=== PATIENT | male | born 1950 | race African-American/Black ===

== ENCOUNTER 2020-11-11 11:03 | Inpatient (IN) | payer MEDICARE ==
[~2020-11-11] VITALS: Ht 188 cm; Wt 121.6 kg
[2020-11-11] MEDS ORDERED: ALBUTEROL (0.083%) 2.5MG/3ML NEB HHN STA (11:36)
[2020-11-11] MEDS ORDERED: METHYLPREDNISOLONE SOD SUCC 125 MG/2 ML VIAL IV STA (11:36)
[2020-11-11 11:51] LABS: BASOPHILS % 0.4 % (0.0-2.0); EOSINOPHILS % 0.4 % (0.0-5.0); HEMATOCRIT. 39.8 % (42.0-52.0); HEMOGLOBIN. 13.2 g/dL (14.0-18.0); MEAN CORPUSCULAR HEMOGLOBIN 26.3 pg (28.0-32.0); MEAN CORPUSCULAR VOLUME 79.6 fL (80.0-94.0); MEAN PLATELET VOLUME 7.1 fl (7.4-10.4); MONOCYTES % 8.4 % (2.0-8.0); NEUTROPHILS % 80.8 % (40.0-76.0); PLATELET 264 x1000/uL (130-400); RED CELL DISTRIBUTION WIDTH 18.5 % (11.6-14.6)
[2020-11-11 11:57] LABS: CHLORIDE 108 mEq/L (98-107)
[2020-11-11] MEDS ORDERED: ASPIRIN 81MG TABLET PO ONE (12:30)
[2020-11-11] MEDS ORDERED: FUROSEMIDE 40MG/4ML VIAL IV ONE (12:30)
[2020-11-11] MEDS ORDERED: ZOLPIDEM TARTRATE 5MG TABLET PO PRN (15:00)
[2020-11-11] MEDS ORDERED: CLONIDINE 0.1MG TABLET PO PRN (15:00)
[2020-11-11] MEDS ORDERED: GUAIFENESIN 200MG/10ML SUGAR FREE UDC PO PRN (15:00)
[2020-11-11] MEDS ORDERED: NITROGLYCERIN 0.4MG TABLET SL SL PRN (15:00)
[2020-11-11] MEDS ORDERED: MAGNESIUM/ALUMINUM HYDROXIDE/SIMETHICONE 30ML UDC PO PRN (15:00)
[2020-11-11] MEDS ORDERED: TRAMADOL 50MG TABLET PO PRN (15:00)
[2020-11-11] MEDS ORDERED: ACETAMINOPHEN 325MG TABLET PO PRN ×2 (15:00)
[2020-11-11 15:23] LABS: TOTAL IRON BINDING CAPACITY 388 ug/dL (250-450)
[2020-11-11 15:38] LABS: FERRITIN 35 ng/mL (22-322)
[2020-11-11 15:44] LABS: BG CARBOXYHEMOGLOBIN 2.8 % (0.5-1.5); BG DEOXYHEMOGLOBIN 15.6 % (0.0-5.0); BG FRACTION INSPIRED OXYGEN 40; BG HCO3 ACT 25.2 mmol/L (22.0-26.0); BG METHEMOGLOBIN 0.3 % (0.0-1.5); BG OXYGEN SATURATION 83.9 % (92.0-98.5); BG OXYHEMOGLOBIN 81.3 % (94.0-97.0); BG PCO2 52.9 mmHg (35.0-45.0); BG PH 7.296 (7.350-7.450); BG SAMPLE SITE LEFT RADIAL; BG TOTAL HEMOGLOBIN 14.6 g/dL (12.0-18.0); BG VENT MODE NASAL CANNULA
[2020-11-11 15:49] LABS: VITAMIN B12 SERUM 983 pg/mL (211-911)
[2020-11-11 15:55] LABS: FOLIC ACID (FOLATE) SERUM > 20.00 ng/mL (>5.38)
[2020-11-11] MEDS ORDERED: ENOXAPARIN 150MG/ML SYR SUBCUT ONE (16:30)
[2020-11-11 16:59] LABS: *BARBITURATES SCREEN URINE NEGATIVE (NEGATIVE); OPIATES URINE SCREEN NEGATIVE (NEGATIVE); PHENCYCLIDINE URINE SCREEN NEGATIVE (NEGATIVE)
[2020-11-11] MEDS: ENOXAPARIN 40MG/0.4ML SYR SUBCUT SCH (17:00)
[2020-11-11] MEDS: FAMOTIDINE 20MG TABLET PO SCH (17:00)
[2020-11-11] MEDS: ZINC SULFATE 220 MG ( 50 ) CAPSULE PO SCH (17:00)
[2020-11-11 17:01] LABS: *AMPHETAMINES SCREEN URINE NEGATIVE (NEGATIVE); *BENZODIAZEPINES SCREEN URINE NEGATIVE (NEGATIVE); *COCAINE SCREEN URINE NEGATIVE (NEGATIVE); CANNABINOID URINE SCREEN NEGATIVE (NEGATIVE); METHADONE URINE SCREEN NEGATIVE (NEGATIVE)
[2020-11-11] MEDS: FUROSEMIDE 40MG/4ML VIAL IVP SCH (18:52)
[2020-11-11] MEDS ORDERED: FAMOTIDINE 20MG TABLET PO SCH (21:00)
[2020-11-11] MEDS: ASCORBIC ACID 500 MG TABLET PO SCH (21:00)
[2020-11-11] MEDS ORDERED: DEXTROSE 50% WATER 50ML SYRINGE IV PRN (22:30)
[2020-11-12] VITALS (7 sets, daily range): BP systolic 118–143; BP diastolic 66–89
[2020-11-12 01:45] LABS: CREATINE KINASE 151 IU/L (39-308); CREATINE KINASE MB FRACTION 1.5 ng/mL (0.5-3.6)
[2020-11-12] MEDS: FUROSEMIDE 40MG/4ML VIAL IVP SCH (06:23)
[2020-11-12] MEDS: INSULIN LISPRO 100 UNITS/ML SUBCUT SCH ×4 (06:28→21:00)
[2020-11-12] MEDS: BLOOD SUGAR DIAGNOSTIC STRIP TEST SCH ×4 (06:28→21:00)
[2020-11-12] MEDS: FAMOTIDINE 20MG TABLET PO SCH (08:44)
[2020-11-12] MEDS: ASCORBIC ACID 500 MG TABLET PO SCH ×2 (08:44→22:16)
[2020-11-12] MEDS: ZINC SULFATE 220 MG ( 50 ) CAPSULE PO SCH (08:44)
[2020-11-12] MEDS: CHOLECALCIFEROL (D3) 1000 UNIT TABLET PO SCH (08:44)
[2020-11-12] MEDS: ENOXAPARIN 40MG/0.4ML SYR SUBCUT SCH (08:47)
[2020-11-12] MEDS ORDERED: ASPIRIN 325MG EC TABLET PO SCH (09:00)
[2020-11-12] MEDS ORDERED: ASPIRIN 81MG EC TABLET PO SCH (10:00)
[2020-11-12 12:33] LABS: BASOPHILS % 0.1 % (0.0-2.0); HEMATOCRIT. 41.3 % (42.0-52.0); HEMOGLOBIN. 12.9 g/dL (14.0-18.0); LYMPHOCYTES % 9.3 % (20.0-50.0); MEAN PLATELET VOLUME 7.1 fl (7.4-10.4); MONOCYTES % 13.8 % (2.0-8.0); NEUTROPHILS % 76.8 % (40.0-76.0); PLATELET 256 x1000/uL (130-400); RED BLOOD CELL COUNT 4.97 mill/uL (4.7-6.1); RED CELL DISTRIBUTION WIDTH 18.5 % (11.6-14.6)
[2020-11-12 12:35] LABS: CHLORIDE 108 mEq/L (98-107)
[2020-11-12 12:44] LABS: CREATINE KINASE 67 IU/L (39-308); PHOSPHORUS 6.3 mg/dL (2.5-4.9)
[2020-11-12 12:45] LABS: LDL CHOLESTEROL 59 mg/dL (5-100)
[2020-11-12 12:47] LABS: CREATINE KINASE MB FRACTION 1.9 ng/mL (0.5-3.6); HDL CHOLESTEROL 47 mg/dL (40-59)
[2020-11-12] MEDS ORDERED: METOPROLOL TARTRATE 25MG TABLET PO SCH (13:30)
[2020-11-12] MEDS ORDERED: IOHEXOL-350 100 ML BOTTLE ONE ×2 (16:56→22:17)
[2020-11-12] MEDS ORDERED: SODIUM POLYSTYRENE SULFONATE 15 G/60 ML BOT PO NR (17:00)
[2020-11-12] MEDS: HYDRALAZINE HCL 25MG TABLET PO SCH ×2 (17:47→22:17)
[2020-11-12] MEDS: METOPROLOL TARTRATE 50MG TABLET PO SCH ×2 (17:47→22:16)
[2020-11-12] MEDS: IPRATROPIUM/ALBUTEROL 0.5-3(2.5)MG/3ML NEB HHN SCH (21:34)
[2020-11-13] VITALS: BP 123/73
[2020-11-13] MEDS: IPRATROPIUM/ALBUTEROL 0.5-3(2.5)MG/3ML NEB HHN SCH ×4 (01:56→20:48)
[2020-11-13 04:00] VITALS: BP 129/76
[2020-11-13] MEDS: INSULIN LISPRO 100 UNITS/ML SUBCUT SCH ×4 (06:59→21:00)
[2020-11-13] MEDS: HYDRALAZINE HCL 25MG TABLET PO SCH (06:59)
[2020-11-13] MEDS: BLOOD SUGAR DIAGNOSTIC STRIP TEST SCH ×4 (06:59→21:00)
[2020-11-13 07:16] LABS: BASOPHILS % 0.2 % (0.0-2.0); HEMATOCRIT. 44.2 % (42.0-52.0); HEMOGLOBIN. 13.9 g/dL (14.0-18.0); LYMPHOCYTES % 8.9 % (20.0-50.0); MEAN CORPUSCULAR HEMOGLOBIN 26.1 pg (28.0-32.0); MEAN CORPUSCULAR VOLUME 83.1 fL (80.0-94.0); MEAN PLATELET VOLUME 7.2 fl (7.4-10.4); MONOCYTES % 10.8 % (2.0-8.0); NEUTROPHILS % 80.1 % (40.0-76.0); PLATELET 233 x1000/uL (130-400); RED BLOOD CELL COUNT 5.31 mill/uL (4.7-6.1); RED CELL DISTRIBUTION WIDTH 18.8 % (11.6-14.6)
[2020-11-13 07:55] LABS: PHOSPHORUS 5.1 mg/dL (2.5-4.9)
[2020-11-13] MEDS: ASCORBIC ACID 500 MG TABLET PO SCH ×2 (08:41→23:06)
[2020-11-13] MEDS: FAMOTIDINE 20MG TABLET PO SCH (08:41)
[2020-11-13] MEDS: CHOLECALCIFEROL (D3) 1000 UNIT TABLET PO SCH (08:42)
[2020-11-13] MEDS: ZINC SULFATE 220 MG ( 50 ) CAPSULE PO SCH (08:42)
[2020-11-13] MEDS: METOPROLOL TARTRATE 50MG TABLET PO SCH ×2 (08:43→23:07)
[2020-11-13] MEDS: BUDESONIDE 0.5MG/2ML NEB HHN SCH ×3 (09:13→20:49)
[2020-11-13] MEDS ORDERED: SODIUM POLYSTYRENE SULFONATE 15 G/60 ML BOT PO NR (10:30)
[2020-11-13] MEDS: FUROSEMIDE 40MG/4ML VIAL IVP SCH (11:58)
[2020-11-13] MEDS: AMLODIPINE 5MG TABLET PO SCH (11:58)
[2020-11-13 12:00] VITALS: BP 128/69
[2020-11-13] MEDS: HYDRALAZINE HCL 50MG TABLET PO SCH ×2 (15:19→23:05)
[2020-11-13 16:00] VITALS: BP 123/69
[2020-11-13 18:11] LABS: BG BASE EXCESS 0.7 mmol/L (-2.0-2.0); BG CARBOXYHEMOGLOBIN 1.3 % (0.5-1.5); BG DEOXYHEMOGLOBIN 6.6 % (0.0-5.0); BG FRACTION INSPIRED OXYGEN 100; BG HCO3 ACT 29.8 mmol/L (22.0-26.0); BG METHEMOGLOBIN 0.1 % (0.0-1.5); BG OXYGEN SATURATION 93.3 % (92.0-98.5); BG PCO2 69.3 mmHg (35.0-45.0); BG PH 7.251 (7.350-7.450); BG PO2 71.4 mmHg (75.0-100.0); BG SAMPLE SITE RIGHT RADIAL; BG TOTAL HEMOGLOBIN 14.1 g/dL (12.0-18.0); BG VENT MODE MASK - SIMPLE
[2020-11-13 20:00] VITALS: BP 128/70
[2020-11-14] VITALS (83 sets, daily range): BP systolic 66–179; BP diastolic 38–109
[2020-11-14 01:40] LABS: BG BASE EXCESS -0.2 mmol/L (-2.0-2.0); BG CARBOXYHEMOGLOBIN 1.3 % (0.5-1.5); BG DEOXYHEMOGLOBIN 3.2 % (0.0-5.0); BG FRACTION INSPIRED OXYGEN 100; BG HCO3 ACT 30.5 mmol/L (22.0-26.0); BG METHEMOGLOBIN 0.2 % (0.0-1.5); BG OXYGEN SATURATION 96.8 % (92.0-98.5); BG OXYHEMOGLOBIN 95.3 % (94.0-97.0); BG PCO2 82.4 mmHg (35.0-45.0); BG PH 7.186 (7.350-7.450); BG PO2 99.6 mmHg (75.0-100.0); BG SAMPLE SITE RIGHT RADIAL; BG TOTAL HEMOGLOBIN 14.1 g/dL (12.0-18.0); BG VENT MODE MASK - NRB
[2020-11-14] MEDS: IPRATROPIUM/ALBUTEROL 0.5-3(2.5)MG/3ML NEB HHN SCH (01:47)
[2020-11-14 04:59] LABS: BG BASE EXCESS -0.6 mmol/L (-2.0-2.0); BG CARBOXYHEMOGLOBIN 1.3 % (0.5-1.5); BG DEOXYHEMOGLOBIN 8.6 % (0.0-5.0); BG FRACTION INSPIRED OXYGEN 100; BG HCO3 ACT 30.8 mmol/L (22.0-26.0); BG METHEMOGLOBIN 0.3 % (0.0-1.5); BG OXYGEN SATURATION 91.3 % (92.0-98.5); BG OXYHEMOGLOBIN 89.8 % (94.0-97.0); BG PCO2 88.4 mmHg (35.0-45.0); BG PO2 68.3 mmHg (75.0-100.0); BG SAMPLE SITE LEFT RADIAL; BG TOTAL HEMOGLOBIN 14.4 g/dL (12.0-18.0); BG VENT MODE MASK - NRB
[2020-11-14] MEDS: PROPOFOL 10MG/ML 100ML 100 ML IV PRN ×7 (05:21→22:07)
[2020-11-14] MEDS: HYDRALAZINE HCL 50MG TABLET PO SCH ×3 (06:00→21:18)
[2020-11-14] MEDS: NOREPINEPHRINE 32 MG in DEXT 5% WATER 218 ML IV PRN ×2 (06:31→21:43)
[2020-11-14] MEDS: INSULIN LISPRO 100 UNITS/ML SUBCUT SCH ×4 (07:00→21:00)
[2020-11-14] MEDS: FENTANYL CITRATE/PF 2,500 MCG in SODIUM CHLORIDE 0.9% 200 ML IV PRN (07:12)
[2020-11-14] MEDS: BLOOD SUGAR DIAGNOSTIC STRIP TEST SCH ×4 (07:28→21:19)
[2020-11-14] MEDS: METOPROLOL TARTRATE 50MG TABLET PO SCH ×2 (08:00→21:00)
[2020-11-14] MEDS: AMLODIPINE 5MG TABLET PO SCH (08:00)
[2020-11-14] MEDS: FAMOTIDINE 20MG TABLET PO SCH (08:06)
[2020-11-14] MEDS: ASCORBIC ACID 500 MG TABLET PO SCH ×2 (08:06→21:42)
[2020-11-14] MEDS: ZINC SULFATE 220 MG ( 50 ) CAPSULE PO SCH (08:06)
[2020-11-14] MEDS: CHOLECALCIFEROL (D3) 1000 UNIT TABLET PO SCH (08:06)
[2020-11-14] MEDS: FUROSEMIDE 40MG/4ML VIAL IVP SCH ×2 (08:06→17:45)
[2020-11-14] MEDS ORDERED: SUCCINYLCHOLINE CHLORIDE 200MG/10ML IV ONE (08:31)
[2020-11-14] MEDS ORDERED: ETOMIDATE 2MG/ML 10ML VIAL IV ONE (08:31)
[2020-11-14] MEDS: ALBUTEROL (0.083%) 2.5MG/3ML NEB HHN SCH ×3 (08:35→20:51)
[2020-11-14] MEDS: BUDESONIDE 0.5MG/2ML NEB HHN SCH ×2 (08:35→20:51)
[2020-11-14 09:50] LABS: BG CARBOXYHEMOGLOBIN 1.4 % (0.5-1.5); BG DEOXYHEMOGLOBIN 1.6 % (0.0-5.0); BG FRACTION INSPIRED OXYGEN 100; BG HCO3 ACT 28.8 mmol/L (22.0-26.0); BG METHEMOGLOBIN 0.3 % (0.0-1.5); BG OXYGEN SATURATION 98.4 % (92.0-98.5); BG OXYHEMOGLOBIN 96.7 % (94.0-97.0); BG PCO2 55.4 mmHg (35.0-45.0); BG PH 7.334 (7.350-7.450); BG PO2 115.4 mmHg (75.0-100.0); BG SAMPLE SITE RIGHT RADIAL; BG TOTAL HEMOGLOBIN 11.8 g/dL (12.0-18.0); BG VENT MODE VENT - AC
[2020-11-14 09:58] LABS: HEMATOCRIT. 40.1 % (42.0-52.0); HEMOGLOBIN. 12.3 g/dL (14.0-18.0); MEAN CORPUSCULAR VOLUME 81.2 fL (80.0-94.0); MEAN PLATELET VOLUME 7.4 fl (7.4-10.4); PLATELET 193 x1000/uL (130-400); RED BLOOD CELL COUNT 4.94 mill/uL (4.7-6.1); RED CELL DISTRIBUTION WIDTH 19.2 % (11.6-14.6)
[2020-11-14 13:47] LABS: PLATELET ESTIMATE NORMAL
[2020-11-14 16:19] LABS: CLARITY URINE CLEAR (CLEAR); COLOR URINE YELLOW (YELLOW); KETONES URINE NEGATIVE (NEGATIVE); LEUKOCYTE ESTERASE URINE 3+ (NEGATIVE); NITRITE URINE NEGATIVE (NEGATIVE); OCCULT BLOOD URINE 2+ (NEGATIVE); PH URINE 5.5 (4.5-8.0); PROTEIN URINE NEGATIVE (NEGATIVE); SPECIFIC GRAVITY URINE 1.012 (1.005-1.030)
[2020-11-15] VITALS (97 sets, daily range): BP systolic 76–158; BP diastolic 47–97
[2020-11-15] MEDS: ALBUTEROL (0.083%) 2.5MG/3ML NEB HHN SCH ×3 (00:26→21:39)
[2020-11-15] MEDS: PROPOFOL 10MG/ML 100ML 100 ML IV PRN ×2 (02:23→17:40)
[2020-11-15] MEDS: HYDRALAZINE HCL 50MG TABLET PO SCH ×3 (05:04→22:00)
[2020-11-15] MEDS: BLOOD SUGAR DIAGNOSTIC STRIP TEST SCH ×4 (05:35→21:50)
[2020-11-15 05:42] LABS: BASOPHILS % 0.3 % (0.0-2.0); HEMATOCRIT. 41.5 % (42.0-52.0); HEMOGLOBIN. 13.2 g/dL (14.0-18.0); LYMPHOCYTES % 9.5 % (20.0-50.0); MEAN CORPUSCULAR HEMOGLOBIN 25.1 pg (28.0-32.0); MEAN CORPUSCULAR VOLUME 78.8 fL (80.0-94.0); MEAN PLATELET VOLUME 7.3 fl (7.4-10.4); MONOCYTES % 6.7 % (2.0-8.0); NEUTROPHILS % 82.5 % (40.0-76.0); PLATELET 201 x1000/uL (130-400); RED BLOOD CELL COUNT 5.26 mill/uL (4.7-6.1); RED CELL DISTRIBUTION WIDTH 18.4 % (11.6-14.6)
[2020-11-15] MEDS: FUROSEMIDE 40MG/4ML VIAL IVP SCH ×2 (05:58→17:18)
[2020-11-15] MEDS: FENTANYL CITRATE/PF 2,500 MCG in SODIUM CHLORIDE 0.9% 200 ML IV PRN ×2 (05:59→18:51)
[2020-11-15] MEDS: INSULIN LISPRO 100 UNITS/ML SUBCUT SCH ×4 (06:28→21:00)
[2020-11-15] MEDS: BUDESONIDE 0.5MG/2ML NEB HHN SCH ×2 (07:30→21:39)
[2020-11-15] MEDS: AMLODIPINE 5MG TABLET PO SCH (08:23)
[2020-11-15] MEDS: CHOLECALCIFEROL (D3) 1000 UNIT TABLET PO SCH (08:23)
[2020-11-15] MEDS: ASCORBIC ACID 500 MG TABLET PO SCH ×2 (08:23→21:51)
[2020-11-15] MEDS: DOCUSATE SODIUM 100MG CAPSULE PO PRN (08:23)
[2020-11-15] MEDS: ZINC SULFATE 220 MG ( 50 ) CAPSULE PO SCH (08:23)
[2020-11-15] MEDS: FAMOTIDINE 20MG TABLET PO SCH (08:23)
[2020-11-15] MEDS: METOPROLOL TARTRATE 50MG TABLET PO SCH ×2 (08:24→21:00)
[2020-11-15 09:43] LABS: BG BASE EXCESS 4.8 mmol/L (-2.0-2.0); BG CARBOXYHEMOGLOBIN 0.9 % (0.5-1.5); BG FRACTION INSPIRED OXYGEN 70; BG HCO3 ACT 27.8 mmol/L (22.0-26.0); BG METHEMOGLOBIN 0.1 % (0.0-1.5); BG OXYGEN SATURATION 93.9 % (92.0-98.5); BG PCO2 35.6 mmHg (35.0-45.0); BG PO2 66.1 mmHg (75.0-100.0); BG SAMPLE SITE RIGHT RADIAL; BG TOTAL HEMOGLOBIN 14.1 g/dL (12.0-18.0); BG TOTAL RESPIRATORY RATE 24 b/min; BG VENT MODE VENT - AC
[2020-11-15] MEDS: PREDNISONE 20MG TABLET PO SCH (17:18)
[2020-11-15] MEDS ORDERED: DIGOXIN 500MCG/2ML AMP IV NR (19:00)
[2020-11-15] MEDS ORDERED: PHENYLEPHRINE 100 MG in DEXT 5% WATER 240 ML IV PRN (19:00)
[2020-11-16] VITALS (97 sets, daily range): BP systolic 70–142; BP diastolic 46–88
[2020-11-16] MEDS: ALBUTEROL (0.083%) 2.5MG/3ML NEB HHN SCH ×6 (01:11→21:00)
[2020-11-16] MEDS: PROPOFOL 10MG/ML 100ML 100 ML IV PRN (01:33)
[2020-11-16] MEDS: FENTANYL CITRATE/PF 2,500 MCG in SODIUM CHLORIDE 0.9% 200 ML IV PRN ×3 (05:08→20:35)
[2020-11-16 06:00] LABS: HEMATOCRIT. 39.2 % (42.0-52.0); HEMOGLOBIN. 12.6 g/dL (14.0-18.0); MEAN CORPUSCULAR HEMOGLOBIN 25.2 pg (28.0-32.0); MEAN CORPUSCULAR VOLUME 78.3 fL (80.0-94.0); MEAN PLATELET VOLUME 7.4 fl (7.4-10.4); PLATELET 168 x1000/uL (130-400); RED CELL DISTRIBUTION WIDTH 18.8 % (11.6-14.6)
[2020-11-16] MEDS: FUROSEMIDE 40MG/4ML VIAL IVP SCH ×2 (06:00→17:35)
[2020-11-16] MEDS: HYDRALAZINE HCL 50MG TABLET PO SCH ×3 (06:00→22:00)
[2020-11-16] MEDS: INSULIN LISPRO 100 UNITS/ML SUBCUT SCH ×4 (07:00→21:00)
[2020-11-16] MEDS: BLOOD SUGAR DIAGNOSTIC STRIP TEST SCH ×4 (07:29→21:13)
[2020-11-16] MEDS: METOPROLOL TARTRATE 50MG TABLET PO SCH ×2 (08:12→20:36)
[2020-11-16] MEDS: AMLODIPINE 5MG TABLET PO SCH (08:13)
[2020-11-16 08:20] LABS: BG DEOXYHEMOGLOBIN 11.1 % (0.0-5.0); BG HCO3 ACT 32.3 mmol/L (22.0-26.0); BG METHEMOGLOBIN 0.1 % (0.0-1.5); BG OXYGEN SATURATION 88.8 % (92.0-98.5); BG OXYHEMOGLOBIN 87.8 % (94.0-97.0); BG PH 7.395 (7.350-7.450); BG PO2 56.2 mmHg (75.0-100.0); BG SAMPLE SITE RIGHT RADIAL; BG TOTAL HEMOGLOBIN 13.5 g/dL (12.0-18.0); BG VENT MODE VENT - AC
[2020-11-16] MEDS: PREDNISONE 20MG TABLET PO SCH (08:30)
[2020-11-16] MEDS: ASCORBIC ACID 500 MG TABLET PO SCH ×2 (08:31→21:48)
[2020-11-16] MEDS: ZINC SULFATE 220 MG ( 50 ) CAPSULE PO SCH (08:31)
[2020-11-16] MEDS: CHOLECALCIFEROL (D3) 1000 UNIT TABLET PO SCH (08:31)
[2020-11-16] MEDS: FAMOTIDINE 20MG TABLET PO SCH (08:32)
[2020-11-16] MEDS ORDERED: NALOXONE HCL 0.4MG/ML VIAL IV PRN (10:00)
[2020-11-16 10:01] LABS: PLATELET ESTIMATE NORMAL
[2020-11-16] MEDS: BUDESONIDE 0.5MG/2ML NEB HHN SCH ×2 (10:24→21:00)
[2020-11-17] VITALS (90 sets, daily range): BP systolic 98–175; BP diastolic 54–113
[2020-11-17] MEDS: ALBUTEROL (0.083%) 2.5MG/3ML NEB HHN SCH ×6 (01:21→20:03)
[2020-11-17] MEDS: FENTANYL CITRATE/PF 2,500 MCG in SODIUM CHLORIDE 0.9% 200 ML IV PRN ×2 (03:28→21:46)
[2020-11-17 05:29] LABS: HEMATOCRIT. 43.1 % (42.0-52.0); HEMOGLOBIN. 13.3 g/dL (14.0-18.0); MEAN CORPUSCULAR VOLUME 80.7 fL (80.0-94.0); MEAN PLATELET VOLUME 8.1 fl (7.4-10.4); PLATELET 150 x1000/uL (130-400); RED BLOOD CELL COUNT 5.34 mill/uL (4.7-6.1); RED CELL DISTRIBUTION WIDTH 18.6 % (11.6-14.6)
[2020-11-17] MEDS: HYDRALAZINE HCL 50MG TABLET PO SCH ×3 (06:00→21:46)
[2020-11-17] MEDS: BLOOD SUGAR DIAGNOSTIC STRIP TEST SCH ×3 (06:34→16:30)
[2020-11-17] MEDS: FUROSEMIDE 40MG/4ML VIAL IVP SCH (06:34)
[2020-11-17] MEDS: INSULIN LISPRO 100 UNITS/ML SUBCUT SCH ×3 (06:34→17:23)
[2020-11-17 08:07] LABS: PHOSPHORUS 7.2 mg/dL (2.5-4.9)
[2020-11-17] MEDS: CHOLECALCIFEROL (D3) 1000 UNIT TABLET PO SCH (08:19)
[2020-11-17] MEDS: PREDNISONE 20MG TABLET PO SCH (08:20)
[2020-11-17] MEDS: ZINC SULFATE 220 MG ( 50 ) CAPSULE PO SCH (08:20)
[2020-11-17] MEDS: ASCORBIC ACID 500 MG TABLET PO SCH ×2 (08:20→21:46)
[2020-11-17] MEDS: METOPROLOL TARTRATE 50MG TABLET PO SCH ×2 (08:20→21:46)
[2020-11-17] MEDS: AMLODIPINE 5MG TABLET PO SCH (08:20)
[2020-11-17] MEDS: FAMOTIDINE 20MG TABLET PO SCH (08:20)
[2020-11-17] MEDS ORDERED: SODIUM POLYSTYRENE SULFONATE 15 G/60 ML BOT PO NR (09:00)
[2020-11-17] MEDS: BUDESONIDE 0.5MG/2ML NEB HHN SCH ×2 (09:05→20:03)
[2020-11-17 10:08] LABS: BG BASE EXCESS 6.7 mmol/L (-2.0-2.0); BG CARBOXYHEMOGLOBIN 1.4 % (0.5-1.5); BG DEOXYHEMOGLOBIN 12.1 % (0.0-5.0); BG FRACTION INSPIRED OXYGEN 100; BG HCO3 ACT 40.4 mmol/L (22.0-26.0); BG METHEMOGLOBIN 0.2 % (0.0-1.5); BG OXYGEN SATURATION 87.7 % (92.0-98.5); BG OXYHEMOGLOBIN 86.3 % (94.0-97.0); BG PCO2 121.4 mmHg (35.0-45.0); BG PO2 62.7 mmHg (75.0-100.0); BG SAMPLE SITE RIGHT RADIAL; BG VENT MODE VENT - SIMV
[2020-11-17] MEDS ORDERED: ALBUMIN HUMAN 25GM/100ML (25%) IV NR (10:30)
[2020-11-17 13:39] LABS: PLATELET ESTIMATE NORMAL
[2020-11-17] MEDS: METHYLPREDNISOLONE SOD SUCC 40 MG/ML VIAL IV SCH ×2 (13:56→21:46)
[2020-11-17 14:40] LABS: BG BASE EXCESS 2.9 mmol/L (-2.0-2.0); BG CARBOXYHEMOGLOBIN 1.2 % (0.5-1.5); BG DEOXYHEMOGLOBIN 14.4 % (0.0-5.0); BG FRACTION INSPIRED OXYGEN 100; BG HCO3 ACT 32.4 mmol/L (22.0-26.0); BG METHEMOGLOBIN 0.2 % (0.0-1.5); BG OXYGEN SATURATION 85.4 % (92.0-98.5); BG OXYHEMOGLOBIN 84.2 % (94.0-97.0); BG PCO2 74.3 mmHg (35.0-45.0); BG PH 7.258 (7.350-7.450); BG PO2 51.1 mmHg (75.0-100.0); BG TOTAL HEMOGLOBIN 14.5 g/dL (12.0-18.0); BG VENT MODE VENT - AC
[2020-11-17] MEDS: PROPOFOL 10MG/ML 100ML 100 ML IV PRN (17:07)
[2020-11-18] VITALS (91 sets, daily range): BP systolic 102–157; BP diastolic 62–109
[2020-11-18] MEDS: ALBUTEROL (0.083%) 2.5MG/3ML NEB HHN SCH ×2 (00:12→04:50)
[2020-11-18] MEDS: BLOOD SUGAR DIAGNOSTIC STRIP TEST SCH ×4 (00:17→17:16)
[2020-11-18] MEDS: PROPOFOL 10MG/ML 100ML 100 ML IV PRN ×3 (00:19→17:42)
[2020-11-18] MEDS: HYDRALAZINE HCL 50MG TABLET PO SCH ×3 (05:24→21:32)
[2020-11-18] MEDS: INSULIN LISPRO 100 UNITS/ML SUBCUT SCH ×4 (05:24→17:16)
[2020-11-18] MEDS: METHYLPREDNISOLONE SOD SUCC 40 MG/ML VIAL IV SCH ×3 (05:24→21:33)
[2020-11-18 05:31] LABS: HEMATOCRIT. 38.9 % (42.0-52.0); HEMOGLOBIN. 12.4 g/dL (14.0-18.0); MEAN CORPUSCULAR HEMOGLOBIN 25.3 pg (28.0-32.0); MEAN CORPUSCULAR VOLUME 79.3 fL (80.0-94.0); MEAN PLATELET VOLUME 8.3 fl (7.4-10.4); PLATELET 123 x1000/uL (130-400); RED CELL DISTRIBUTION WIDTH 18.4 % (11.6-14.6)
[2020-11-18 05:53] LABS: PHOSPHORUS 3.4 mg/dL (2.5-4.9)
[2020-11-18 07:05] LABS: PLATELET ESTIMATE SLIGHTLY DECREASED
[2020-11-18] MEDS: CHOLECALCIFEROL (D3) 1000 UNIT TABLET PO SCH (08:07)
[2020-11-18] MEDS: FAMOTIDINE 20MG TABLET PO SCH (08:07)
[2020-11-18] MEDS: ASCORBIC ACID 500 MG TABLET PO SCH ×2 (08:07→21:32)
[2020-11-18] MEDS: AMLODIPINE 5MG TABLET PO SCH (08:07)
[2020-11-18] MEDS: ZINC SULFATE 220 MG ( 50 ) CAPSULE PO SCH (08:07)
[2020-11-18] MEDS: METOPROLOL TARTRATE 50MG TABLET PO SCH ×2 (08:07→21:32)
[2020-11-18 08:35] LABS: BG BASE EXCESS 6.3 mmol/L (-2.0-2.0); BG CARBOXYHEMOGLOBIN 0.9 % (0.5-1.5); BG DEOXYHEMOGLOBIN 3.6 % (0.0-5.0); BG HCO3 ACT 32.5 mmol/L (22.0-26.0); BG METHEMOGLOBIN 0.3 % (0.0-1.5); BG OXYGEN SATURATION 96.4 % (92.0-98.5); BG OXYHEMOGLOBIN 95.2 % (94.0-97.0); BG PCO2 53.1 mmHg (35.0-45.0); BG PH 7.404 (7.350-7.450); BG PO2 87.4 mmHg (75.0-100.0); BG SAMPLE SITE RIGHT BRACHIAL; BG TOTAL HEMOGLOBIN 13.8 g/dL (12.0-18.0); BG VENT MODE VENT - AC
[2020-11-18] MEDS: BUDESONIDE 0.5MG/2ML NEB HHN SCH ×2 (09:15→20:32)
[2020-11-18] MEDS: IPRATROPIUM/ALBUTEROL 0.5-3(2.5)MG/3ML NEB NEB PRN ×4 (09:15→20:33)
[2020-11-18] MEDS: FENTANYL CITRATE/PF 2,500 MCG in SODIUM CHLORIDE 0.9% 200 ML IV PRN (10:18)
[2020-11-18] MEDS ORDERED: BISACODYL 10MG SUPP PR PRN (13:15)
[2020-11-18] MEDS ORDERED: BISACODYL 10MG SUPP PR SCH (13:15)
[2020-11-19] VITALS (89 sets, daily range): BP systolic 110–153; BP diastolic 69–103
[2020-11-19] MEDS: ALBUTEROL (0.083%) 2.5MG/3ML NEB HHN SCH ×6 (00:37→20:26)
[2020-11-19] MEDS: PROPOFOL 10MG/ML 100ML 100 ML IV PRN ×3 (01:22→17:19)
[2020-11-19] MEDS: FENTANYL CITRATE/PF 2,500 MCG in SODIUM CHLORIDE 0.9% 200 ML IV PRN ×2 (04:52→17:18)
[2020-11-19] MEDS: INSULIN LISPRO 100 UNITS/ML SUBCUT SCH ×4 (06:00→17:40)
[2020-11-19 06:27] LABS: HEMATOCRIT. 39.5 % (42.0-52.0); HEMOGLOBIN. 12.8 g/dL (14.0-18.0); MEAN CORPUSCULAR HEMOGLOBIN 25.5 pg (28.0-32.0); MEAN CORPUSCULAR VOLUME 78.5 fL (80.0-94.0); MEAN PLATELET VOLUME 8.8 fl (7.4-10.4); PLATELET 117 x1000/uL (130-400); RED BLOOD CELL COUNT 5.03 mill/uL (4.7-6.1); RED CELL DISTRIBUTION WIDTH 18.8 % (11.6-14.6)
[2020-11-19] MEDS: BLOOD SUGAR DIAGNOSTIC STRIP TEST SCH ×4 (06:43→17:40)
[2020-11-19] MEDS: HYDRALAZINE HCL 50MG TABLET PO SCH ×3 (06:43→21:46)
[2020-11-19] MEDS: METHYLPREDNISOLONE SOD SUCC 40 MG/ML VIAL IV SCH ×3 (06:43→21:46)
[2020-11-19 06:47] LABS: PHOSPHORUS 3.1 mg/dL (2.5-4.9)
[2020-11-19] MEDS: BUDESONIDE 0.5MG/2ML NEB HHN SCH (07:57)
[2020-11-19] MEDS: ZINC SULFATE 220 MG ( 50 ) CAPSULE PO SCH (08:26)
[2020-11-19] MEDS: FAMOTIDINE 20MG TABLET PO SCH (08:26)
[2020-11-19] MEDS: ASCORBIC ACID 500 MG TABLET PO SCH ×2 (08:26→21:46)
[2020-11-19] MEDS: CHOLECALCIFEROL (D3) 1000 UNIT TABLET PO SCH (08:27)
[2020-11-19] MEDS: METOPROLOL TARTRATE 50MG TABLET PO SCH ×2 (08:27→21:46)
[2020-11-19] MEDS: AMLODIPINE 5MG TABLET PO SCH (08:27)
[2020-11-19 09:40] LABS: BG BASE EXCESS 6.9 mmol/L (-2.0-2.0); BG CARBOXYHEMOGLOBIN 0.9 % (0.5-1.5); BG DEOXYHEMOGLOBIN 4.8 % (0.0-5.0); BG FRACTION INSPIRED OXYGEN 90; BG HCO3 ACT 33.7 mmol/L (22.0-26.0); BG METHEMOGLOBIN 0.1 % (0.0-1.5); BG OXYGEN SATURATION 95.2 % (92.0-98.5); BG OXYHEMOGLOBIN 94.2 % (94.0-97.0); BG PCO2 56.9 mmHg (35.0-45.0); BG PO2 77.3 mmHg (75.0-100.0); BG SAMPLE SITE RIGHT BRACHIAL; BG TOTAL HEMOGLOBIN 14.2 g/dL (12.0-18.0); BG VENT MODE VENT - AC
[2020-11-19] MEDS: CEFEPIME 2,000 MG in DEXT 5% WATER 100 ML IV SCH ×2 (10:15→21:41)
[2020-11-19 10:29] LABS: PLATELET ESTIMATE SLIGHTLY DECREASED
[2020-11-19] MEDS ORDERED: VANCOMYCIN 1,500 MG in DEXT 5% WATER 250 ML IV SCH (11:00)
[2020-11-20] VITALS (47 sets, daily range): BP systolic 95–129; BP diastolic 62–84
[2020-11-20] MEDS: ALBUTEROL (0.083%) 2.5MG/3ML NEB HHN SCH ×5 (00:26→15:44)
[2020-11-20] MEDS: PROPOFOL 10MG/ML 100ML 100 ML IV PRN (00:32)
[2020-11-20] MEDS: METHYLPREDNISOLONE SOD SUCC 40 MG/ML VIAL IV SCH ×3 (05:05→22:00)
[2020-11-20 05:59] LABS: HEMATOCRIT. 40.9 % (42.0-52.0); HEMOGLOBIN. 12.6 g/dL (14.0-18.0); MEAN CORPUSCULAR HEMOGLOBIN 24.7 pg (28.0-32.0); MEAN CORPUSCULAR VOLUME 80.3 fL (80.0-94.0); MEAN PLATELET VOLUME 8.9 fl (7.4-10.4); PLATELET 123 x1000/uL (130-400); RED BLOOD CELL COUNT 5.09 mill/uL (4.7-6.1); RED CELL DISTRIBUTION WIDTH 18.7 % (11.6-14.6)
[2020-11-20] MEDS: INSULIN LISPRO 100 UNITS/ML SUBCUT SCH ×4 (06:00→17:16)
[2020-11-20] MEDS: HYDRALAZINE HCL 50MG TABLET PO SCH ×3 (06:27→22:00)
[2020-11-20] MEDS: PROPOFOL 10MG/ML 100ML 100 ML IV SCH ×3 (06:31→21:26)
[2020-11-20] MEDS: BLOOD SUGAR DIAGNOSTIC STRIP TEST SCH ×4 (06:39→17:17)
[2020-11-20 07:01] LABS: PHOSPHORUS 3.5 mg/dL (2.5-4.9)
[2020-11-20] MEDS: DOCUSATE SODIUM 100MG CAPSULE PO PRN ×2 (07:03→21:24)
[2020-11-20] MEDS: CEFEPIME 2,000 MG in DEXT 5% WATER 100 ML IV SCH ×2 (08:17→21:24)
[2020-11-20] MEDS: ASCORBIC ACID 500 MG TABLET PO SCH ×2 (08:18→21:25)
[2020-11-20] MEDS: FAMOTIDINE 20MG TABLET PO SCH (08:18)
[2020-11-20] MEDS: CHOLECALCIFEROL (D3) 1000 UNIT TABLET PO SCH (08:18)
[2020-11-20] MEDS: ZINC SULFATE 220 MG ( 50 ) CAPSULE PO SCH (08:18)
[2020-11-20] MEDS: METOPROLOL TARTRATE 50MG TABLET PO SCH ×2 (08:18→21:00)
[2020-11-20] MEDS: AMLODIPINE 5MG TABLET PO SCH (08:18)
[2020-11-20 08:57] LABS: BG BASE EXCESS 5.2 mmol/L (-2.0-2.0); BG CARBOXYHEMOGLOBIN 1.1 % (0.5-1.5); BG DEOXYHEMOGLOBIN 8.5 % (0.0-5.0); BG FRACTION INSPIRED OXYGEN 90; BG METHEMOGLOBIN 0.1 % (0.0-1.5); BG OXYGEN SATURATION 91.4 % (92.0-98.5); BG OXYHEMOGLOBIN 90.3 % (94.0-97.0); BG PCO2 56.7 mmHg (35.0-45.0); BG PO2 62.3 mmHg (75.0-100.0); BG SAMPLE SITE RIGHT RADIAL; BG TOTAL HEMOGLOBIN 13.7 g/dL (12.0-18.0); BG TOTAL RESPIRATORY RATE 19 b/min; BG VENT MODE VENT - AC
[2020-11-20] MEDS: FENTANYL CITRATE/PF 2,500 MCG in SODIUM CHLORIDE 0.9% 200 ML IV PRN (10:08)
[2020-11-20 10:32] LABS: PLATELET ESTIMATE SLIGHTLY DECREASED
[2020-11-20] MEDS: VANCOMYCIN 1 G PREMIX 200 ML IV SCH (11:15)
[2020-11-20] MEDS: IPRATROPIUM/ALBUTEROL 0.5-3(2.5)MG/3ML NEB NEB PRN (20:21)
[2020-11-21] VITALS (48 sets, daily range): BP systolic 93–125; BP diastolic 62–82
[2020-11-21] MEDS: ALBUTEROL (0.083%) 2.5MG/3ML NEB HHN SCH ×6 (00:34→20:30)
[2020-11-21] MEDS: FENTANYL CITRATE/PF 2,500 MCG in SODIUM CHLORIDE 0.9% 200 ML IV PRN ×3 (03:01→20:20)
[2020-11-21] MEDS: PROPOFOL 10MG/ML 100ML 100 ML IV SCH (04:33)
[2020-11-21] MEDS: METHYLPREDNISOLONE SOD SUCC 40 MG/ML VIAL IV SCH ×3 (05:37→21:58)
[2020-11-21] MEDS: HYDRALAZINE HCL 50MG TABLET PO SCH ×3 (05:37→21:52)
[2020-11-21] MEDS: INSULIN LISPRO 100 UNITS/ML SUBCUT SCH ×4 (05:50→17:38)
[2020-11-21] MEDS: BLOOD SUGAR DIAGNOSTIC STRIP TEST SCH ×4 (05:50→17:38)
[2020-11-21] MEDS: FAMOTIDINE 20MG TABLET PO SCH (08:51)
[2020-11-21] MEDS: CHOLECALCIFEROL (D3) 1000 UNIT TABLET PO SCH (08:51)
[2020-11-21] MEDS: ASCORBIC ACID 500 MG TABLET PO SCH ×2 (08:51→21:58)
[2020-11-21] MEDS: ZINC SULFATE 220 MG ( 50 ) CAPSULE PO SCH (08:51)
[2020-11-21 08:54] LABS: BG BASE EXCESS 5.5 mmol/L (-2.0-2.0); BG DEOXYHEMOGLOBIN 9.9 % (0.0-5.0); BG FRACTION INSPIRED OXYGEN 90; BG HCO3 ACT 33.1 mmol/L (22.0-26.0); BG METHEMOGLOBIN 0.2 % (0.0-1.5); BG OXYHEMOGLOBIN 88.9 % (94.0-97.0); BG PCO2 62.3 mmHg (35.0-45.0); BG PH 7.343 (7.350-7.450); BG PO2 59.1 mmHg (75.0-100.0); BG SAMPLE SITE RIGHT RADIAL; BG TOTAL HEMOGLOBIN 13.4 g/dL (12.0-18.0); BG TOTAL RESPIRATORY RATE 18 b/min; BG VENT MODE VENT - AC
[2020-11-21] MEDS: AMLODIPINE 5MG TABLET PO SCH (09:00)
[2020-11-21] MEDS: METOPROLOL TARTRATE 50MG TABLET PO SCH ×2 (09:00→21:00)
[2020-11-21] MEDS: CEFEPIME 2,000 MG in DEXT 5% WATER 100 ML IV SCH ×2 (09:22→21:59)
[2020-11-21] MEDS: VANCOMYCIN 1 G PREMIX 200 ML IV SCH (11:23)
[2020-11-21] MEDS: PROPOFOL 10MG/ML 100ML 100 ML IV PRN ×3 (11:31→21:46)
[2020-11-21] MEDS: DEXTROSE 5% WATER 1,000 ML IV SCH (13:21)
[2020-11-21 14:55] LABS: BG BASE EXCESS 3.1 mmol/L (-2.0-2.0); BG CARBOXYHEMOGLOBIN 0.9 % (0.5-1.5); BG DEOXYHEMOGLOBIN 10.1 % (0.0-5.0); BG FRACTION INSPIRED OXYGEN 90; BG HCO3 ACT 30.3 mmol/L (22.0-26.0); BG METHEMOGLOBIN 0.2 % (0.0-1.5); BG OXYGEN SATURATION 89.8 % (92.0-98.5); BG OXYHEMOGLOBIN 88.8 % (94.0-97.0); BG PCO2 57.8 mmHg (35.0-45.0); BG PH 7.337 (7.350-7.450); BG PO2 58.4 mmHg (75.0-100.0); BG SAMPLE SITE RIGHT RADIAL; BG TOTAL HEMOGLOBIN 13.4 g/dL (12.0-18.0); BG TOTAL RESPIRATORY RATE 20 b/min; BG VENT MODE VENT - AC
[2020-11-22] VITALS (48 sets, daily range): BP systolic 96–140; BP diastolic 54–88
[2020-11-22] MEDS: ALBUTEROL (0.083%) 2.5MG/3ML NEB HHN SCH ×3 (00:21→20:39)
[2020-11-22] MEDS: PROPOFOL 10MG/ML 100ML 100 ML IV PRN ×3 (02:18→17:16)
[2020-11-22 05:29] LABS: HEMATOCRIT. 39.3 % (42.0-52.0); HEMOGLOBIN. 12.2 g/dL (14.0-18.0); MEAN CORPUSCULAR VOLUME 80.3 fL (80.0-94.0); MEAN PLATELET VOLUME 9.4 fl (7.4-10.4); PLATELET 99 x1000/uL (130-400); RED CELL DISTRIBUTION WIDTH 18.4 % (11.6-14.6)
[2020-11-22] MEDS: HYDRALAZINE HCL 50MG TABLET PO SCH ×3 (05:46→21:20)
[2020-11-22 05:58] LABS: PHOSPHORUS 2.9 mg/dL (2.5-4.9)
[2020-11-22] MEDS: INSULIN LISPRO 100 UNITS/ML SUBCUT SCH ×5 (05:58→23:43)
[2020-11-22] MEDS: METHYLPREDNISOLONE SOD SUCC 40 MG/ML VIAL IV SCH ×3 (05:58→21:19)
[2020-11-22] MEDS: BLOOD SUGAR DIAGNOSTIC STRIP TEST SCH ×5 (05:58→23:43)
[2020-11-22 07:57] LABS: PLATELET ESTIMATE SLIGHTLY DECREASED
[2020-11-22 07:58] LABS: NUCLEATED RED BLOOD CELLS 11 /100 WBC
[2020-11-22] MEDS: CEFEPIME 2,000 MG in DEXT 5% WATER 100 ML IV SCH ×2 (08:26→21:19)
[2020-11-22] MEDS: FAMOTIDINE 20MG TABLET PO SCH (08:26)
[2020-11-22] MEDS: ZINC SULFATE 220 MG ( 50 ) CAPSULE PO SCH (08:26)
[2020-11-22] MEDS: ASCORBIC ACID 500 MG TABLET PO SCH ×2 (08:26→21:19)
[2020-11-22] MEDS: CHOLECALCIFEROL (D3) 1000 UNIT TABLET PO SCH (08:26)
[2020-11-22] MEDS: METOPROLOL TARTRATE 50MG TABLET PO SCH ×2 (08:27→21:20)
[2020-11-22] MEDS: AMLODIPINE 5MG TABLET PO SCH (08:27)
[2020-11-22 09:00] LABS: BG CARBOXYHEMOGLOBIN 1.1 % (0.5-1.5); BG DEOXYHEMOGLOBIN 7.2 % (0.0-5.0); BG FRACTION INSPIRED OXYGEN 90; BG HCO3 ACT 28.9 mmol/L (22.0-26.0); BG METHEMOGLOBIN 0.3 % (0.0-1.5); BG OXYGEN SATURATION 92.7 % (92.0-98.5); BG OXYHEMOGLOBIN 91.4 % (94.0-97.0); BG PCO2 54.8 mmHg (35.0-45.0); BG PO2 66.9 mmHg (75.0-100.0); BG SAMPLE SITE LEFT RADIAL; BG TOTAL HEMOGLOBIN 13.9 g/dL (12.0-18.0); BG VENT MODE VENT - AC
[2020-11-22] MEDS: IPRATROPIUM/ALBUTEROL 0.5-3(2.5)MG/3ML NEB NEB PRN ×3 (09:06→16:10)
[2020-11-22] MEDS: VANCOMYCIN 1 G PREMIX 200 ML IV SCH (10:07)
[2020-11-22] MEDS: DEXTROSE 5% WATER 1,000 ML IV SCH (13:16)
[2020-11-22] MEDS: FENTANYL CITRATE/PF 2,500 MCG in SODIUM CHLORIDE 0.9% 200 ML IV PRN (17:15)
[2020-11-23] VITALS (74 sets, daily range): BP systolic 90–134; BP diastolic 41–88
[2020-11-23] MEDS: ALBUTEROL (0.083%) 2.5MG/3ML NEB HHN SCH ×7 (00:22→20:37)
[2020-11-23] MEDS: PROPOFOL 10MG/ML 100ML 100 ML IV PRN ×4 (01:49→20:06)
[2020-11-23] MEDS: INSULIN LISPRO 100 UNITS/ML SUBCUT SCH ×3 (06:00→18:00)
[2020-11-23] MEDS: HYDRALAZINE HCL 50MG TABLET PO SCH ×3 (06:00→22:05)
[2020-11-23] MEDS: BLOOD SUGAR DIAGNOSTIC STRIP TEST SCH ×3 (06:04→18:19)
[2020-11-23 06:11] LABS: HEMATOCRIT. 40.8 % (42.0-52.0); HEMOGLOBIN. 12.7 g/dL (14.0-18.0); MEAN CORPUSCULAR HEMOGLOBIN 24.9 pg (28.0-32.0); MEAN CORPUSCULAR VOLUME 80.3 fL (80.0-94.0); MEAN PLATELET VOLUME 10.3 fl (7.4-10.4); PLATELET 120 x1000/uL (130-400); RED BLOOD CELL COUNT 5.08 mill/uL (4.7-6.1); RED CELL DISTRIBUTION WIDTH 18.3 % (11.6-14.6)
[2020-11-23] MEDS: METHYLPREDNISOLONE SOD SUCC 40 MG/ML VIAL IV SCH ×3 (06:16→22:02)
[2020-11-23] MEDS: METOPROLOL TARTRATE 50MG TABLET PO SCH ×2 (09:00→20:55)
[2020-11-23] MEDS: AMLODIPINE 5MG TABLET PO SCH (09:00)
[2020-11-23] MEDS: CHOLECALCIFEROL (D3) 1000 UNIT TABLET PO SCH (09:28)
[2020-11-23] MEDS: ZINC SULFATE 220 MG ( 50 ) CAPSULE PO SCH (09:28)
[2020-11-23] MEDS: FAMOTIDINE 20MG TABLET PO SCH (09:28)
[2020-11-23] MEDS: CEFEPIME 2,000 MG in DEXT 5% WATER 100 ML IV SCH ×2 (09:28→20:59)
[2020-11-23] MEDS: ASCORBIC ACID 500 MG TABLET PO SCH ×2 (09:28→20:59)
[2020-11-23 09:44] LABS: BG BASE EXCESS -1.2 mmol/L (-2.0-2.0); BG DEOXYHEMOGLOBIN 7.6 % (0.0-5.0); BG FRACTION INSPIRED OXYGEN 90; BG HCO3 ACT 25.8 mmol/L (22.0-26.0); BG METHEMOGLOBIN 0.2 % (0.0-1.5); BG OXYGEN SATURATION 92.3 % (92.0-98.5); BG OXYHEMOGLOBIN 91.2 % (94.0-97.0); BG PCO2 52.2 mmHg (35.0-45.0); BG PH 7.311 (7.350-7.450); BG PO2 65.4 mmHg (75.0-100.0); BG SAMPLE SITE LEFT RADIAL; BG TOTAL HEMOGLOBIN 13.4 g/dL (12.0-18.0); BG VENT MODE VENT - AC
[2020-11-23 09:46] LABS: PLATELET ESTIMATE SLIGHTLY DECREASED
[2020-11-23] MEDS: VANCOMYCIN 1 G PREMIX 200 ML IV SCH (11:53)
[2020-11-23] MEDS: DEXTROSE 5% WATER 1,000 ML IV SCH (13:34)
[2020-11-23] MEDS: FENTANYL CITRATE/PF 2,500 MCG in SODIUM CHLORIDE 0.9% 200 ML IV PRN (13:36)
[2020-11-24] VITALS (94 sets, daily range): BP systolic 92–133; BP diastolic 54–93
[2020-11-24] MEDS: IPRATROPIUM/ALBUTEROL 0.5-3(2.5)MG/3ML NEB NEB PRN (00:19)
[2020-11-24] MEDS: ALBUTEROL (0.083%) 2.5MG/3ML NEB HHN SCH ×6 (00:20→20:24)
[2020-11-24] MEDS: PROPOFOL 10MG/ML 100ML 100 ML IV PRN ×5 (01:00→18:58)
[2020-11-24] MEDS: METHYLPREDNISOLONE SOD SUCC 40 MG/ML VIAL IV SCH ×3 (05:37→21:32)
[2020-11-24] MEDS: HYDRALAZINE HCL 50MG TABLET PO SCH ×3 (05:38→21:32)
[2020-11-24] MEDS: BLOOD SUGAR DIAGNOSTIC STRIP TEST SCH ×4 (05:55→18:24)
[2020-11-24] MEDS: INSULIN LISPRO 100 UNITS/ML SUBCUT SCH ×4 (05:55→18:00)
[2020-11-24 06:21] LABS: HEMATOCRIT. 38.5 % (42.0-52.0); MEAN CORPUSCULAR HEMOGLOBIN 24.9 pg (28.0-32.0); MEAN CORPUSCULAR VOLUME 79.8 fL (80.0-94.0); MEAN PLATELET VOLUME 10.4 fl (7.4-10.4); PLATELET 132 x1000/uL (130-400); RED BLOOD CELL COUNT 4.83 mill/uL (4.7-6.1); RED CELL DISTRIBUTION WIDTH 18.7 % (11.6-14.6)
[2020-11-24 06:45] LABS: PHOSPHORUS 2.9 mg/dL (2.5-4.9)
[2020-11-24] MEDS: METOPROLOL TARTRATE 50MG TABLET PO SCH ×2 (09:00→21:20)
[2020-11-24] MEDS: AMLODIPINE 5MG TABLET PO SCH (09:00)
[2020-11-24] MEDS: ASCORBIC ACID 500 MG TABLET PO SCH ×2 (09:01→21:20)
[2020-11-24] MEDS: CEFEPIME 2,000 MG in DEXT 5% WATER 100 ML IV SCH (09:01)
[2020-11-24] MEDS: CHOLECALCIFEROL (D3) 1000 UNIT TABLET PO SCH (09:01)
[2020-11-24] MEDS: FAMOTIDINE 20MG TABLET PO SCH (09:01)
[2020-11-24] MEDS: ZINC SULFATE 220 MG ( 50 ) CAPSULE PO SCH (09:01)
[2020-11-24 09:09] LABS: BG BASE EXCESS 0.4 mmol/L (-2.0-2.0); BG CARBOXYHEMOGLOBIN 0.9 % (0.5-1.5); BG DEOXYHEMOGLOBIN 7.1 % (0.0-5.0); BG FRACTION INSPIRED OXYGEN 100; BG HCO3 ACT 26.5 mmol/L (22.0-26.0); BG METHEMOGLOBIN 0.3 % (0.0-1.5); BG OXYGEN SATURATION 92.8 % (92.0-98.5); BG OXYHEMOGLOBIN 91.7 % (94.0-97.0); BG PCO2 48.3 mmHg (35.0-45.0); BG PH 7.357 (7.350-7.450); BG PO2 65.3 mmHg (75.0-100.0); BG SAMPLE SITE RIGHT RADIAL; BG TOTAL HEMOGLOBIN 13.6 g/dL (12.0-18.0); BG TOTAL RESPIRATORY RATE 26 b/min; BG VENT MODE VENT - AC
[2020-11-24] MEDS: VANCOMYCIN 1 G PREMIX 200 ML IV SCH (10:45)
[2020-11-24] MEDS ORDERED: SODIUM POLYSTYRENE SULFONATE 15 G/60 ML BOT PO SCH (11:00)
[2020-11-24] MEDS ORDERED: SODIUM POLYSTYRENE SULFONATE 15 G/60 ML BOT PO NR (12:00)
[2020-11-24] MEDS: DEXTROSE 5% WATER 1,000 ML IV SCH (13:02)
[2020-11-24 13:19] LABS: PLATELET ESTIMATE NORMAL
[2020-11-24] MEDS: FENTANYL CITRATE/PF 2,500 MCG in SODIUM CHLORIDE 0.9% 200 ML IV PRN (15:53)
[2020-11-24] MEDS ORDERED: FENTANYL CITRATE/PF 2,500 MCG in SODIUM CHLORIDE 0.9% 200 ML IV PRN (16:00)
[2020-11-25] VITALS (97 sets, daily range): BP systolic 82–176; BP diastolic 51–93
[2020-11-25] MEDS: ALBUTEROL (0.083%) 2.5MG/3ML NEB HHN SCH ×6 (00:18→20:54)
[2020-11-25] MEDS: BLOOD SUGAR DIAGNOSTIC STRIP TEST SCH ×5 (00:20→23:45)
[2020-11-25] MEDS: PROPOFOL 10MG/ML 100ML 100 ML IV PRN ×4 (03:22→19:12)
[2020-11-25] MEDS: HYDRALAZINE HCL 50MG TABLET PO SCH ×3 (05:48→22:00)
[2020-11-25] MEDS: METHYLPREDNISOLONE SOD SUCC 40 MG/ML VIAL IV SCH ×3 (05:48→23:00)
[2020-11-25] MEDS: INSULIN LISPRO 100 UNITS/ML SUBCUT SCH ×5 (05:49→23:45)
[2020-11-25 06:09] LABS: HEMATOCRIT. 38.3 % (42.0-52.0); HEMOGLOBIN. 11.7 g/dL (14.0-18.0); MEAN CORPUSCULAR HEMOGLOBIN 24.3 pg (28.0-32.0); MEAN CORPUSCULAR VOLUME 79.2 fL (80.0-94.0); MEAN PLATELET VOLUME 10.4 fl (7.4-10.4); PLATELET 122 x1000/uL (130-400); RED BLOOD CELL COUNT 4.83 mill/uL (4.7-6.1); RED CELL DISTRIBUTION WIDTH 18.7 % (11.6-14.6)
[2020-11-25 06:11] LABS: PHOSPHORUS 2.6 mg/dL (2.5-4.9)
[2020-11-25 08:57] LABS: PLATELET ESTIMATE SLIGHTLY DECREASED
[2020-11-25] MEDS: FAMOTIDINE 20MG TABLET PO SCH (09:18)
[2020-11-25] MEDS: CHOLECALCIFEROL (D3) 1000 UNIT TABLET PO SCH (09:18)
[2020-11-25] MEDS: ASCORBIC ACID 500 MG TABLET PO SCH ×2 (09:18→20:33)
[2020-11-25] MEDS: METOPROLOL TARTRATE 50MG TABLET PO SCH ×2 (09:18→20:34)
[2020-11-25] MEDS: ZINC SULFATE 220 MG ( 50 ) CAPSULE PO SCH (09:18)
[2020-11-25] MEDS: AMLODIPINE 5MG TABLET PO SCH (09:18)
[2020-11-25 09:26] LABS: BG BASE EXCESS -1.1 mmol/L (-2.0-2.0); BG CARBOXYHEMOGLOBIN 0.8 % (0.5-1.5); BG FRACTION INSPIRED OXYGEN 100; BG HCO3 ACT 25.7 mmol/L (22.0-26.0); BG METHEMOGLOBIN 0.3 % (0.0-1.5); BG OXYGEN SATURATION 94.9 % (92.0-98.5); BG OXYHEMOGLOBIN 93.9 % (94.0-97.0); BG PCO2 51.7 mmHg (35.0-45.0); BG PH 7.315 (7.350-7.450); BG PO2 79.8 mmHg (75.0-100.0); BG SAMPLE SITE RIGHT RADIAL; BG TOTAL HEMOGLOBIN 13.2 g/dL (12.0-18.0); BG VENT MODE VENT - AC
[2020-11-25] MEDS ORDERED: FENTANYL CITRATE/PF 2,500 MCG in SODIUM CHLORIDE 0.9% 200 ML IV PRN (13:30)
[2020-11-25] MEDS: FENTANYL CITRATE/PF 2,500 MCG in SODIUM CHLORIDE 0.9% 200 ML IV PRN (15:25)
[2020-11-26] VITALS (84 sets, daily range): BP systolic 87–171; BP diastolic 18–102
[2020-11-26] MEDS: ALBUTEROL (0.083%) 2.5MG/3ML NEB HHN SCH ×7 (00:41→23:34)
[2020-11-26] MEDS: PROPOFOL 10MG/ML 100ML 100 ML IV PRN ×3 (00:45→08:39)
[2020-11-26] MEDS: HYDRALAZINE HCL 50MG TABLET PO SCH ×3 (06:00→23:08)
[2020-11-26] MEDS: INSULIN LISPRO 100 UNITS/ML SUBCUT SCH ×3 (06:00→18:00)
[2020-11-26] MEDS: BLOOD SUGAR DIAGNOSTIC STRIP TEST SCH ×3 (06:13→18:01)
[2020-11-26] MEDS: METHYLPREDNISOLONE SOD SUCC 40 MG/ML VIAL IV SCH ×3 (06:18→21:59)
[2020-11-26 07:05] LABS: HEMATOCRIT. 39.7 % (42.0-52.0); HEMOGLOBIN. 12.4 g/dL (14.0-18.0); MEAN CORPUSCULAR HEMOGLOBIN 24.7 pg (28.0-32.0); MEAN CORPUSCULAR VOLUME 79.5 fL (80.0-94.0); MEAN PLATELET VOLUME 10.3 fl (7.4-10.4); PLATELET 147 x1000/uL (130-400); RED CELL DISTRIBUTION WIDTH 18.7 % (11.6-14.6)
[2020-11-26 08:27] LABS: BG BASE EXCESS -0.8 mmol/L (-2.0-2.0); BG CARBOXYHEMOGLOBIN 0.7 % (0.5-1.5); BG DEOXYHEMOGLOBIN 10.6 % (0.0-5.0); BG FRACTION INSPIRED OXYGEN 100; BG HCO3 ACT 26.5 mmol/L (22.0-26.0); BG METHEMOGLOBIN 0.3 % (0.0-1.5); BG OXYGEN SATURATION 89.3 % (92.0-98.5); BG OXYHEMOGLOBIN 88.4 % (94.0-97.0); BG PCO2 54.9 mmHg (35.0-45.0); BG PH 7.302 (7.350-7.450); BG PO2 59.3 mmHg (75.0-100.0); BG TOTAL HEMOGLOBIN 13.8 g/dL (12.0-18.0); BG VENT MODE VENT - AC
[2020-11-26 08:35] LABS: PHOSPHORUS 3.3 mg/dL (2.5-4.9)
[2020-11-26] MEDS: ZINC SULFATE 220 MG ( 50 ) CAPSULE PO SCH ×2 (08:39→08:54)
[2020-11-26] MEDS: AMLODIPINE 5MG TABLET PO SCH ×2 (08:39→08:53)
[2020-11-26] MEDS: FAMOTIDINE 20MG TABLET PO SCH ×2 (08:39→08:54)
[2020-11-26] MEDS: ASCORBIC ACID 500 MG TABLET PO SCH ×3 (08:39→21:00)
[2020-11-26] MEDS: METOPROLOL TARTRATE 50MG TABLET PO SCH ×3 (08:39→21:01)
[2020-11-26] MEDS: CHOLECALCIFEROL (D3) 1000 UNIT TABLET PO SCH ×2 (08:39→08:54)
[2020-11-26] MEDS ORDERED: ROCURONIUM BROMIDE 10MG/ML VIAL 5ML IV ONE (10:28)
[2020-11-26] MEDS ORDERED: MIDAZOLAM HCL 2 MG/2 ML VIAL ONE (10:28)
[2020-11-26] MEDS ORDERED: VECURONIUM BROMIDE 10 MG/VIAL IV ONE (10:50)
[2020-11-26] MEDS ORDERED: MORPHINE SULFATE 2 MG/ML CPJ (NOT FOR IM USE) IV PRN ×2 (12:45→19:30)
[2020-11-26] MEDS ORDERED: LORAZEPAM 2MG/ML CPJ IV PRN (12:45)
[2020-11-26] MEDS ORDERED: NALOXONE HCL 0.4MG/ML VIAL IV PRN (13:00)
[2020-11-26 13:57] LABS: PLATELET ESTIMATE NORMAL
[2020-11-26] MEDS ORDERED: MORPHINE SULFATE 2 MG/ML CPJ (NOT FOR IM USE) IV NR (15:45)
[2020-11-26] MEDS: ACETYLCYSTEINE 100MG/ML 10% VIAL 4ML INH SCH ×2 (16:26→19:53)
[2020-11-26] MEDS: FENTANYL CITRATE/PF 2,500 MCG in SODIUM CHLORIDE 0.9% 200 ML IV PRN (18:59)
[2020-11-26 19:08] LABS: BG BASE EXCESS 0.7 mmol/L (-2.0-2.0); BG CARBOXYHEMOGLOBIN 0.9 % (0.5-1.5); BG DEOXYHEMOGLOBIN 12.1 % (0.0-5.0); BG FRACTION INSPIRED OXYGEN 100; BG HCO3 ACT 26.8 mmol/L (22.0-26.0); BG METHEMOGLOBIN 0.4 % (0.0-1.5); BG OXYGEN SATURATION 87.7 % (92.0-98.5); BG OXYHEMOGLOBIN 86.6 % (94.0-97.0); BG PCO2 48.5 mmHg (35.0-45.0); BG PH 7.361 (7.350-7.450); BG PO2 55.5 mmHg (75.0-100.0); BG SAMPLE SITE RIGHT RADIAL; BG TOTAL HEMOGLOBIN 14.6 g/dL (12.0-18.0); BG VENT MODE VENT - AC
[2020-11-27] VITALS (64 sets, daily range): BP systolic 60–189; BP diastolic 32–107
[2020-11-27] MEDS: BLOOD SUGAR DIAGNOSTIC STRIP TEST SCH ×4 (00:38→17:45)
[2020-11-27] MEDS: IPRATROPIUM/ALBUTEROL 0.5-3(2.5)MG/3ML NEB NEB PRN (01:39)
[2020-11-27] MEDS: ALBUTEROL (0.083%) 2.5MG/3ML NEB HHN SCH ×5 (02:14→20:13)
[2020-11-27] MEDS: ACETYLCYSTEINE 100MG/ML 10% VIAL 4ML INH SCH ×3 (02:14→16:41)
[2020-11-27] MEDS: METHYLPREDNISOLONE SOD SUCC 40 MG/ML VIAL IV SCH ×3 (05:33→21:49)
[2020-11-27] MEDS: HYDRALAZINE HCL 50MG TABLET PO SCH ×3 (05:33→22:00)
[2020-11-27] MEDS: LORAZEPAM 2MG/ML CPJ IV PRN ×2 (05:34→18:16)
[2020-11-27] MEDS: INSULIN LISPRO 100 UNITS/ML SUBCUT SCH ×4 (05:35→17:57)
[2020-11-27 07:04] LABS: HEMATOCRIT. 40.1 % (42.0-52.0); HEMOGLOBIN. 12.3 g/dL (14.0-18.0); MEAN CORPUSCULAR HEMOGLOBIN 24.3 pg (28.0-32.0); PLATELET 197 x1000/uL (130-400); RED BLOOD CELL COUNT 5.07 mill/uL (4.7-6.1); RED CELL DISTRIBUTION WIDTH 18.5 % (11.6-14.6)
[2020-11-27 07:20] LABS: PHOSPHORUS 4.2 mg/dL (2.5-4.9)
[2020-11-27] MEDS: ASCORBIC ACID 500 MG TABLET PO SCH ×2 (08:05→21:49)
[2020-11-27] MEDS: AMLODIPINE 5MG TABLET PO SCH (08:05)
[2020-11-27] MEDS: ZINC SULFATE 220 MG ( 50 ) CAPSULE PO SCH (08:05)
[2020-11-27] MEDS: FAMOTIDINE 20MG TABLET PO SCH (08:05)
[2020-11-27] MEDS: CHOLECALCIFEROL (D3) 1000 UNIT TABLET PO SCH (08:05)
[2020-11-27] MEDS: METOPROLOL TARTRATE 50MG TABLET PO SCH ×2 (08:06→21:00)
[2020-11-27] MEDS: FENTANYL CITRATE/PF 2,500 MCG in SODIUM CHLORIDE 0.9% 200 ML IV PRN (08:13)
[2020-11-27 09:05] LABS: BG BASE EXCESS -1.6 mmol/L (-2.0-2.0); BG CARBOXYHEMOGLOBIN 0.7 % (0.5-1.5); BG FRACTION INSPIRED OXYGEN 100; BG METHEMOGLOBIN 0.3 % (0.0-1.5); BG OXYGEN SATURATION 86.9 % (92.0-98.5); BG PCO2 55.6 mmHg (35.0-45.0); BG PH 7.287 (7.350-7.450); BG PO2 55.3 mmHg (75.0-100.0); BG SAMPLE SITE RIGHT RADIAL; BG TOTAL HEMOGLOBIN 13.8 g/dL (12.0-18.0); BG VENT MODE VENT - AC
[2020-11-27] MEDS: DEXT 5%/0.45% NACL 1000ML 1,000 ML IV SCH (10:31)
[2020-11-27 11:56] LABS: PLATELET ESTIMATE NORMAL
[2020-11-27] MEDS: GUAIFENESIN 200MG/10ML SUGAR FREE UDC PO SCH ×3 (11:56→23:43)
[2020-11-27] MEDS: METOCLOPRAMIDE HCL 10MG/2ML VIAL IV SCH ×3 (11:57→23:44)
[2020-11-28] VITALS (49 sets, daily range): BP systolic 86–165; BP diastolic 51–108
[2020-11-28] MEDS: ALBUTEROL (0.083%) 2.5MG/3ML NEB HHN SCH ×3 (00:23→21:04)
[2020-11-28] MEDS: ACETYLCYSTEINE 100MG/ML 10% VIAL 4ML INH SCH ×3 (00:23→16:44)
[2020-11-28] MEDS: BLOOD SUGAR DIAGNOSTIC STRIP TEST SCH ×4 (00:40→17:07)
[2020-11-28 05:44] LABS: HEMATOCRIT. 38.5 % (42.0-52.0); MEAN CORPUSCULAR HEMOGLOBIN 24.8 pg (28.0-32.0); MEAN CORPUSCULAR VOLUME 79.7 fL (80.0-94.0); MEAN PLATELET VOLUME 9.7 fl (7.4-10.4); PLATELET 222 x1000/uL (130-400); RED BLOOD CELL COUNT 4.83 mill/uL (4.7-6.1); RED CELL DISTRIBUTION WIDTH 18.9 % (11.6-14.6)
[2020-11-28] MEDS: METHYLPREDNISOLONE SOD SUCC 40 MG/ML VIAL IV SCH ×2 (05:48→13:03)
[2020-11-28] MEDS: GUAIFENESIN 200MG/10ML SUGAR FREE UDC PO SCH ×3 (05:48→17:06)
[2020-11-28] MEDS: HYDRALAZINE HCL 50MG TABLET PO SCH ×3 (05:49→21:59)
[2020-11-28] MEDS: FENTANYL CITRATE/PF 2,500 MCG in SODIUM CHLORIDE 0.9% 200 ML IV PRN (05:49)
[2020-11-28] MEDS: INSULIN LISPRO 100 UNITS/ML SUBCUT SCH ×4 (05:50→17:07)
[2020-11-28] MEDS: METOCLOPRAMIDE HCL 10MG/2ML VIAL IV SCH ×3 (06:01→17:11)
[2020-11-28 06:05] LABS: PHOSPHORUS 4.5 mg/dL (2.5-4.9)
[2020-11-28] MEDS: DEXT 5%/0.45% NACL 1000ML 1,000 ML IV SCH (06:39)
[2020-11-28] MEDS: ASCORBIC ACID 500 MG TABLET PO SCH ×3 (08:28→21:59)
[2020-11-28] MEDS: METOPROLOL TARTRATE 50MG TABLET PO SCH ×2 (08:28→21:00)
[2020-11-28] MEDS: FAMOTIDINE 20MG TABLET PO SCH (08:28)
[2020-11-28] MEDS: AMLODIPINE 5MG TABLET PO SCH (08:28)
[2020-11-28] MEDS: ZINC SULFATE 220 MG ( 50 ) CAPSULE PO SCH (08:28)
[2020-11-28] MEDS: CHOLECALCIFEROL (D3) 1000 UNIT TABLET PO SCH (08:28)
[2020-11-28 09:00] LABS: BG BASE EXCESS -0.7 mmol/L (-2.0-2.0); BG CARBOXYHEMOGLOBIN 0.9 % (0.5-1.5); BG DEOXYHEMOGLOBIN 6.6 % (0.0-5.0); BG FRACTION INSPIRED OXYGEN 100; BG HCO3 ACT 27.1 mmol/L (22.0-26.0); BG METHEMOGLOBIN 0.4 % (0.0-1.5); BG OXYGEN SATURATION 93.3 % (92.0-98.5); BG OXYHEMOGLOBIN 92.1 % (94.0-97.0); BG PCO2 58.9 mmHg (35.0-45.0); BG PO2 72.3 mmHg (75.0-100.0); BG SAMPLE SITE LEFT RADIAL; BG TOTAL HEMOGLOBIN 13.1 g/dL (12.0-18.0); BG VENT MODE VENT - AC
[2020-11-28] MEDS: IPRATROPIUM/ALBUTEROL 0.5-3(2.5)MG/3ML NEB NEB PRN ×3 (09:05→16:43)
[2020-11-28] MEDS: LORAZEPAM 2MG/ML CPJ IV PRN ×2 (09:31→15:40)
[2020-11-28 10:17] LABS: PLATELET ESTIMATE NORMAL
[2020-11-28] MEDS: DEXTROSE 5% WATER 1,000 ML IV SCH ×2 (11:29→22:20)
[2020-11-28] MEDS ORDERED: SODIUM CHLORIDE 0.9% 500 ML IV SCH (11:30)
[2020-11-28] MEDS ORDERED: NA PHOS,M-B/NA PHOS,DI-BA ENEMA 118ML PR NR (17:00)
[2020-11-28] MEDS: BISACODYL 10MG SUPP PR SCH (17:10)
[2020-11-29] VITALS (45 sets, daily range): BP systolic 88–169; BP diastolic 58–152
[2020-11-29] MEDS: METOCLOPRAMIDE HCL 10MG/2ML VIAL IV SCH ×4 (00:27→17:29)
[2020-11-29] MEDS: GUAIFENESIN 200MG/10ML SUGAR FREE UDC PO SCH ×6 (00:27→20:19)
[2020-11-29] MEDS: BISACODYL 10MG SUPP PR SCH ×2 (00:27→08:01)
[2020-11-29] MEDS: METHYLPREDNISOLONE SOD SUCC 40 MG/ML VIAL IV SCH ×4 (00:27→20:26)
[2020-11-29] MEDS: BLOOD SUGAR DIAGNOSTIC STRIP TEST SCH ×4 (00:29→17:22)
[2020-11-29] MEDS ORDERED: NA PHOS,M-B/NA PHOS,DI-BA ENEMA 118ML PR NR (01:00)
[2020-11-29] MEDS: LORAZEPAM 2MG/ML CPJ IV PRN ×4 (01:10→22:00)
[2020-11-29] MEDS: ACETYLCYSTEINE 100MG/ML 10% VIAL 4ML INH SCH ×3 (02:01→17:34)
[2020-11-29] MEDS: ALBUTEROL (0.083%) 2.5MG/3ML NEB HHN SCH ×6 (02:01→20:29)
[2020-11-29] MEDS: FENTANYL CITRATE/PF 2,500 MCG in SODIUM CHLORIDE 0.9% 200 ML IV PRN (03:40)
[2020-11-29] MEDS: HYDRALAZINE HCL 50MG TABLET PO SCH ×3 (05:31→20:19)
[2020-11-29 05:34] LABS: HEMOGLOBIN. 11.3 g/dL (14.0-18.0); MEAN CORPUSCULAR HEMOGLOBIN 24.3 pg (28.0-32.0); MEAN CORPUSCULAR VOLUME 79.5 fL (80.0-94.0); MEAN PLATELET VOLUME 9.2 fl (7.4-10.4); PLATELET 211 x1000/uL (130-400); RED BLOOD CELL COUNT 4.65 mill/uL (4.7-6.1); RED CELL DISTRIBUTION WIDTH 18.7 % (11.6-14.6)
[2020-11-29] MEDS: INSULIN LISPRO 100 UNITS/ML SUBCUT SCH ×4 (06:00→17:22)
[2020-11-29 06:03] LABS: PHOSPHORUS 4.2 mg/dL (2.5-4.9)
[2020-11-29] MEDS: METOPROLOL TARTRATE 50MG TABLET PO SCH ×2 (08:01→20:18)
[2020-11-29] MEDS: CHOLECALCIFEROL (D3) 1000 UNIT TABLET PO SCH (08:01)
[2020-11-29] MEDS: AMLODIPINE 5MG TABLET PO SCH (08:01)
[2020-11-29] MEDS: ZINC SULFATE 220 MG ( 50 ) CAPSULE PO SCH (08:01)
[2020-11-29] MEDS: FAMOTIDINE 20MG TABLET PO SCH (08:01)
[2020-11-29] MEDS: DEXTROSE 5% WATER 1,000 ML IV SCH ×2 (10:27→20:26)
[2020-11-29 13:25] LABS: PLATELET ESTIMATE NORMAL
[2020-11-29] MEDS ORDERED: MORPHINE SULFATE 2 MG/ML CPJ (NOT FOR IM USE) IV PRN (14:00)
[2020-11-29] MEDS: MORPHINE SULFATE 2 MG/ML CPJ (NOT FOR IM USE) IV PRN ×2 (18:07→20:13)
[2020-11-29] MEDS: ASCORBIC ACID 500 MG TABLET PO SCH (20:19)
[2020-11-29] MEDS: ONDANSETRON HCL 4MG/2ML INJ IV PRN (22:00)
[2020-11-30] VITALS (50 sets, daily range): BP systolic 93–144; BP diastolic 63–111
[2020-11-30] MEDS: METOCLOPRAMIDE HCL 10MG/2ML VIAL IV SCH ×5 (00:02→23:37)
[2020-11-30] MEDS: BLOOD SUGAR DIAGNOSTIC STRIP TEST SCH ×5 (00:02→23:27)
[2020-11-30] MEDS: ALBUTEROL (0.083%) 2.5MG/3ML NEB HHN SCH ×4 (00:17→15:55)
[2020-11-30] MEDS: ONDANSETRON HCL 4MG/2ML INJ IV PRN (02:04)
[2020-11-30] MEDS: LORAZEPAM 2MG/ML CPJ IV PRN ×4 (02:04→23:37)
[2020-11-30] MEDS: GUAIFENESIN 200MG/10ML SUGAR FREE UDC PO SCH ×4 (05:03→23:37)
[2020-11-30] MEDS: MORPHINE SULFATE 2 MG/ML CPJ (NOT FOR IM USE) IV PRN ×3 (05:03→15:58)
[2020-11-30] MEDS: HYDRALAZINE HCL 50MG TABLET PO SCH ×3 (05:04→21:10)
[2020-11-30] MEDS: INSULIN LISPRO 100 UNITS/ML SUBCUT SCH ×5 (05:31→23:27)
[2020-11-30 06:02] LABS: HEMATOCRIT. 38.4 % (42.0-52.0); HEMOGLOBIN. 11.8 g/dL (14.0-18.0); MEAN CORPUSCULAR HEMOGLOBIN 24.4 pg (28.0-32.0); MEAN CORPUSCULAR VOLUME 79.1 fL (80.0-94.0); MEAN PLATELET VOLUME 9.2 fl (7.4-10.4); PLATELET 214 x1000/uL (130-400); RED BLOOD CELL COUNT 4.85 mill/uL (4.7-6.1); RED CELL DISTRIBUTION WIDTH 18.5 % (11.6-14.6)
[2020-11-30 06:32] LABS: PHOSPHORUS 4.1 mg/dL (2.5-4.9)
[2020-11-30] MEDS: ACETYLCYSTEINE 100MG/ML 10% VIAL 4ML INH SCH ×2 (08:42→15:55)
[2020-11-30] MEDS: ASCORBIC ACID 500 MG TABLET PO SCH ×3 (09:00→20:27)
[2020-11-30] MEDS: FAMOTIDINE 20MG TABLET PO SCH ×2 (09:00→09:47)
[2020-11-30] MEDS: AMLODIPINE 5MG TABLET PO SCH (09:00)
[2020-11-30] MEDS: METOPROLOL TARTRATE 50MG TABLET PO SCH ×2 (09:00→20:23)
[2020-11-30] MEDS: CHOLECALCIFEROL (D3) 1000 UNIT TABLET PO SCH ×2 (09:00→09:47)
[2020-11-30] MEDS: ZINC SULFATE 220 MG ( 50 ) CAPSULE PO SCH ×2 (09:00→09:48)
[2020-11-30 09:19] LABS: BG BASE EXCESS -1.9 mmol/L (-2.0-2.0); BG CARBOXYHEMOGLOBIN 1.3 % (0.5-1.5); BG DEOXYHEMOGLOBIN 15.4 % (0.0-5.0); BG FRACTION INSPIRED OXYGEN 80; BG HCO3 ACT 24.4 mmol/L (22.0-26.0); BG METHEMOGLOBIN 0.3 % (0.0-1.5); BG OXYGEN SATURATION 84.3 % (92.0-98.5); BG PCO2 48.2 mmHg (35.0-45.0); BG PH 7.323 (7.350-7.450); BG PO2 52.7 mmHg (75.0-100.0); BG SAMPLE SITE LEFT RADIAL; BG TOTAL HEMOGLOBIN 12.8 g/dL (12.0-18.0); BG TOTAL RESPIRATORY RATE 28 b/min; BG VENT MODE VENT - AC
[2020-11-30] MEDS: METHYLPREDNISOLONE SOD SUCC 40 MG/ML VIAL IV SCH ×2 (09:47→20:38)
[2020-11-30] MEDS: DEXTROSE 5% WATER 1,000 ML IV SCH ×2 (09:48→20:23)
[2020-11-30] MEDS ORDERED: LACTULOSE 300 ML in WATER FOR IRRIGATION,STERILE 700 ML IR PRN (10:45)
[2020-11-30] MEDS: IPRATROPIUM/ALBUTEROL 0.5-3(2.5)MG/3ML NEB NEB PRN ×2 (11:55→20:57)
[2020-11-30 12:48] LABS: PLATELET ESTIMATE NORMAL
[2020-11-30] MEDS: LACTULOSE 300 ML in WATER FOR IRRIGATION,STERILE 700 ML IR SCH (16:56)
[2020-11-30] MEDS ORDERED: GABA-290 PO (18:36)
[2020-11-30] MEDS ORDERED: labetalol (18:36)
[2020-11-30] MEDS ORDERED: HYDR-4009 MT (18:36)
[2020-11-30] MEDS ORDERED: CHLO25TA2 PO (18:36)
[2020-12-01] VITALS (47 sets, daily range): BP systolic 110–160; BP diastolic 71–108
[2020-12-01] MEDS: ACETYLCYSTEINE 100MG/ML 10% VIAL 4ML INH SCH ×3 (00:37→16:34)
[2020-12-01] MEDS: IPRATROPIUM/ALBUTEROL 0.5-3(2.5)MG/3ML NEB NEB PRN ×4 (00:37→16:34)
[2020-12-01] MEDS: DEXTROSE 5% WATER 1,000 ML IV SCH ×2 (02:56→15:42)
[2020-12-01] MEDS: MORPHINE SULFATE 2 MG/ML CPJ (NOT FOR IM USE) IV PRN ×2 (04:20→15:43)
[2020-12-01] MEDS: BLOOD SUGAR DIAGNOSTIC STRIP TEST SCH ×3 (05:24→17:52)
[2020-12-01] MEDS: INSULIN LISPRO 100 UNITS/ML SUBCUT SCH ×3 (05:24→17:55)
[2020-12-01] MEDS: METOCLOPRAMIDE HCL 10MG/2ML VIAL IV SCH ×3 (05:30→17:58)
[2020-12-01] MEDS: LORAZEPAM 2MG/ML CPJ IV PRN ×3 (05:30→17:58)
[2020-12-01 05:48] LABS: HEMATOCRIT. 39.5 % (42.0-52.0); HEMOGLOBIN. 12.2 g/dL (14.0-18.0); MEAN CORPUSCULAR HEMOGLOBIN 24.5 pg (28.0-32.0); MEAN CORPUSCULAR VOLUME 79.3 fL (80.0-94.0); MEAN PLATELET VOLUME 9.5 fl (7.4-10.4); PLATELET 222 x1000/uL (130-400); RED BLOOD CELL COUNT 4.98 mill/uL (4.7-6.1); RED CELL DISTRIBUTION WIDTH 18.7 % (11.6-14.6)
[2020-12-01] MEDS: GUAIFENESIN 200MG/10ML SUGAR FREE UDC PO SCH ×4 (06:00→17:52)
[2020-12-01] MEDS: HYDRALAZINE HCL 50MG TABLET PO SCH ×3 (06:00→21:37)
[2020-12-01 06:05] LABS: PHOSPHORUS 4.3 mg/dL (2.5-4.9)
[2020-12-01 07:52] LABS: BG CARBOXYHEMOGLOBIN 1.2 % (0.5-1.5); BG DEOXYHEMOGLOBIN 9.6 % (0.0-5.0); BG FRACTION INSPIRED OXYGEN 90; BG HCO3 ACT 24.7 mmol/L (22.0-26.0); BG METHEMOGLOBIN 0.3 % (0.0-1.5); BG OXYGEN SATURATION 90.3 % (92.0-98.5); BG OXYHEMOGLOBIN 88.9 % (94.0-97.0); BG PCO2 45.5 mmHg (35.0-45.0); BG PH 7.353 (7.350-7.450); BG PO2 60.4 mmHg (75.0-100.0); BG SAMPLE SITE RIGHT RADIAL; BG VENT MODE VENT - AC/VC
[2020-12-01] MEDS: METOPROLOL TARTRATE 50MG TABLET PO SCH ×2 (09:00→21:00)
[2020-12-01] MEDS: ALBUTEROL (0.083%) 2.5MG/3ML NEB HHN SCH ×4 (09:09→21:38)
[2020-12-01] MEDS ORDERED: BISACODYL 10MG SUPP PR SCH (09:15)
[2020-12-01] MEDS: METHYLPREDNISOLONE SOD SUCC 40 MG/ML VIAL IV SCH ×2 (09:46→21:45)
[2020-12-01] MEDS: ZINC SULFATE 220 MG ( 50 ) CAPSULE PO SCH (09:46)
[2020-12-01] MEDS: AMLODIPINE 5MG TABLET PO SCH (09:46)
[2020-12-01] MEDS: FAMOTIDINE 20MG TABLET PO SCH (09:46)
[2020-12-01] MEDS: ASCORBIC ACID 500 MG TABLET PO SCH ×2 (09:46→21:00)
[2020-12-01] MEDS: CHOLECALCIFEROL (D3) 1000 UNIT TABLET PO SCH (09:47)
[2020-12-01] MEDS: LACTULOSE 300 ML in WATER FOR IRRIGATION,STERILE 700 ML IR SCH (10:14)
[2020-12-01 13:41] LABS: PLATELET ESTIMATE NORMAL
[2020-12-02] VITALS (29 sets, daily range): BP systolic 118–151; BP diastolic 80–102
[2020-12-02] MEDS: BLOOD SUGAR DIAGNOSTIC STRIP TEST SCH ×4 (00:01→18:00)
[2020-12-02] MEDS: METOCLOPRAMIDE HCL 10MG/2ML VIAL IV SCH ×4 (00:27→18:00)
[2020-12-02] MEDS: LORAZEPAM 2MG/ML CPJ IV PRN ×6 (00:34→21:18)
[2020-12-02] MEDS: ALBUTEROL (0.083%) 2.5MG/3ML NEB HHN SCH ×7 (00:46→23:57)
[2020-12-02] MEDS: DEXTROSE 5% WATER 1,000 ML IV SCH ×3 (01:15→19:10)
[2020-12-02] MEDS: MORPHINE SULFATE 2 MG/ML CPJ (NOT FOR IM USE) IV PRN (04:59)
[2020-12-02] MEDS: HYDRALAZINE HCL 50MG TABLET PO SCH ×3 (05:25→22:57)
[2020-12-02] MEDS: INSULIN LISPRO 100 UNITS/ML SUBCUT SCH ×4 (05:27→18:00)
[2020-12-02] MEDS: GUAIFENESIN 200MG/10ML SUGAR FREE UDC PO SCH ×4 (05:27→18:00)
[2020-12-02 05:55] LABS: HEMATOCRIT. 38.7 % (42.0-52.0); HEMOGLOBIN. 12.1 g/dL (14.0-18.0); MEAN CORPUSCULAR HEMOGLOBIN 24.5 pg (28.0-32.0); MEAN CORPUSCULAR VOLUME 78.5 fL (80.0-94.0); MEAN PLATELET VOLUME 9.3 fl (7.4-10.4); PLATELET 214 x1000/uL (130-400); RED BLOOD CELL COUNT 4.94 mill/uL (4.7-6.1); RED CELL DISTRIBUTION WIDTH 18.8 % (11.6-14.6)
[2020-12-02 06:08] LABS: PHOSPHORUS 4.4 mg/dL (2.5-4.9)
[2020-12-02 08:19] LABS: BG FRACTION INSPIRED OXYGEN 100; BG HCO3 ACT 21.5 mmol/L (22.0-26.0); BG PH 7.338 (7.350-7.450); BG PO2 72.5 mmHg (75.0-100.0); BG SAMPLE SITE RIGHT RADIAL; BG VENT MODE VENT - AC
[2020-12-02] MEDS: ZINC SULFATE 220 MG ( 50 ) CAPSULE PO SCH (09:00)
[2020-12-02] MEDS: METOPROLOL TARTRATE 50MG TABLET PO SCH ×2 (09:00→21:19)
[2020-12-02] MEDS: LACTULOSE 300 ML in WATER FOR IRRIGATION,STERILE 700 ML IR SCH (09:00)
[2020-12-02] MEDS: FAMOTIDINE 20MG TABLET PO SCH (09:00)
[2020-12-02] MEDS: ASCORBIC ACID 500 MG TABLET PO SCH ×2 (09:00→21:19)
[2020-12-02] MEDS: AMLODIPINE 5MG TABLET PO SCH (09:00)
[2020-12-02] MEDS: CHOLECALCIFEROL (D3) 1000 UNIT TABLET PO SCH (09:00)
[2020-12-02] MEDS: METHYLPREDNISOLONE SOD SUCC 40 MG/ML VIAL IV SCH (09:10)
[2020-12-02 10:02] LABS: PLATELET ESTIMATE NORMAL
[2020-12-02] MEDS: RACEPINEPHRINE 2.25% 0.5ML NEB VIAL HHN PRN ×2 (12:12→16:15)
[2020-12-03] VITALS (7 sets, daily range): BP systolic 89–145; BP diastolic 19–80
[2020-12-03] MEDS: BLOOD SUGAR DIAGNOSTIC STRIP TEST SCH ×2 (00:50→05:15)
[2020-12-03] MEDS: GUAIFENESIN 200MG/10ML SUGAR FREE UDC PO SCH ×2 (00:54→05:14)
[2020-12-03] MEDS: METOCLOPRAMIDE HCL 10MG/2ML VIAL IV SCH ×2 (00:55→05:15)
[2020-12-03] MEDS: LORAZEPAM 2MG/ML CPJ IV PRN ×2 (02:17→11:01)
[2020-12-03] MEDS: MORPHINE SULFATE 2 MG/ML CPJ (NOT FOR IM USE) IV PRN (02:58)
[2020-12-03] MEDS: ONDANSETRON HCL 4MG/2ML INJ IV PRN (02:58)
[2020-12-03] MEDS: ALBUTEROL (0.083%) 2.5MG/3ML NEB HHN SCH ×3 (04:01→11:50)
[2020-12-03] MEDS: HYDRALAZINE HCL 50MG TABLET PO SCH (05:15)
[2020-12-03] MEDS: INSULIN LISPRO 100 UNITS/ML SUBCUT SCH ×2 (05:15)
[2020-12-03 06:42] LABS: HEMATOCRIT. 37.5 % (42.0-52.0); HEMOGLOBIN. 11.9 g/dL (14.0-18.0); MEAN CORPUSCULAR HEMOGLOBIN 24.6 pg (28.0-32.0); MEAN CORPUSCULAR VOLUME 77.2 fL (80.0-94.0); MEAN PLATELET VOLUME 9.1 fl (7.4-10.4); PLATELET 186 x1000/uL (130-400); RED BLOOD CELL COUNT 4.86 mill/uL (4.7-6.1)
[2020-12-03 07:17] LABS: PHOSPHORUS 3.9 mg/dL (2.5-4.9)
[2020-12-03] MEDS: LACTULOSE 300 ML in WATER FOR IRRIGATION,STERILE 700 ML IR SCH ×2 (09:00→09:44)
[2020-12-03] MEDS: METOPROLOL TARTRATE 50MG TABLET PO SCH (09:00)
[2020-12-03] MEDS ORDERED: METHYLPREDNISOLONE SOD SUCC 40 MG/ML VIAL IV SCH (09:00)
[2020-12-03] MEDS: AMLODIPINE 5MG TABLET PO SCH (09:00)
[2020-12-03] MEDS: CHOLECALCIFEROL (D3) 1000 UNIT TABLET PO SCH (09:44)
[2020-12-03] MEDS: ZINC SULFATE 220 MG ( 50 ) CAPSULE PO SCH (09:44)
[2020-12-03] MEDS: FAMOTIDINE 20MG TABLET PO SCH (09:44)
[2020-12-03] MEDS: ASCORBIC ACID 500 MG TABLET PO SCH (09:45)
[2020-12-04 05:04] LABS: PLATELET ESTIMATE NORMAL
== END 2020-12-03 18:20 | DRG 3 ==
LOC: ER 11:03 → EDBEDREQ 12:26 → EDBEDREQTM 12:26 → 7EST 14:34 → SUPCPDRO 14:49 → EDBEDREQSVC 15:28 → EDBEDREQ 15:28 → EDBEDREQTM 15:28 → EDBEDREQSVC 19:44 → EDBEDREQTM 19:44 → ENRESERV 20:33 → 7EST 11-13 13:08 → MICUSO 11-14 04:30 → CVICU 11-19 21:15 → 5EST 12-02 20:00
PROVIDERS: ADMIT Internal Medicine; ATTEND Internal Medicine
PROC: 5A1955Z Respiratory Ventilation, Greater than 96 Consecutive Hours (ICD-10-PCS; principal; 2020-11-14)
PROC: 0BH17EZ Insertion of Endotracheal Airway into Trachea, Via Natural or Artificial Opening (ICD-10-PCS; 2020-11-14)
PROC: 02HV33Z Insertion of Infusion Device into Superior Vena Cava, Percutaneous Approach (ICD-10-PCS; 2020-11-14)
PROC: B548ZZA Ultrasonography of Superior Vena Cava, Guidance (ICD-10-PCS; 2020-11-14)
PROC: 0B110F4 Bypass Trachea to Cutaneous with Tracheostomy Device, Open Approach (ICD-10-PCS; 2020-11-26)
PROC: 0GBJ0ZZ Excision of Thyroid Gland Isthmus, Open Approach (ICD-10-PCS; 2020-11-26)
DX: J96.02 Acute respiratory failure with hypercapnia (principal); I50.43 Acute on chronic combined systolic (congestive) and diastolic (congestive) heart failure; E43 Unspecified severe protein-calorie malnutrition; I71.02 Dissection of abdominal aorta; E87.2 Acidosis; N17.9 Acute kidney failure, unspecified; G93.40 Encephalopathy, unspecified; J84.9 Interstitial pulmonary disease, unspecified; R57.9 Shock, unspecified; E87.0 Hyperosmolality and hypernatremia; I13.0 Hypertensive heart and chronic kidney disease with heart failure and stage 1 through stage 4 chronic kidney disease, or unspecified chronic kidney disease; N39.0 Urinary tract infection, site not specified; Z66 Do not resuscitate; I27.81 Cor pulmonale (chronic); N18.9 Chronic kidney disease, unspecified; I27.29 Other secondary pulmonary hypertension; E87.5 Hyperkalemia; I07.1 Rheumatic tricuspid insufficiency; J43.9 Emphysema, unspecified; R13.12 Dysphagia, oropharyngeal phase; J96.01 Acute respiratory failure with hypoxia; I16.0 Hypertensive urgency; Z20.822 Contact with and (suspected) exposure to COVID-19; D63.8 Anemia in other chronic diseases classified elsewhere; F17.210 Nicotine dependence, cigarettes, uncomplicated; D69.6 Thrombocytopenia, unspecified; I71.2 Thoracic aortic aneurysm, without rupture; Z59.02 Unsheltered homelessness; Z79.4 Long term (current) use of insulin; Z82.49 Family history of ischemic heart disease and other diseases of the circulatory system; Z83.3 Family history of diabetes mellitus; Z71.6 Tobacco abuse counseling; Z68.34 Body mass index [BMI] 34.0-34.9, adult
CPT/HCPCS: 31500; 36415; 36573; 36600; 70551; 71045; 71250; 71275; 74018; 76770; 80048; 80053; 80061; 80202; 80305; 81003; 82375; 82550; 82553; 82607; 82728; 82746; 82805; 82962; 83036; 83540; 83550; 83615; 83735; 83880; 84100; 84145; 84478; 84484; 85025; 85379; 87070; 87426; 93005; 93306; 93970; 94002; 94003; 94640; 99291; A6261; C1725; C1769; J0330; J0692; J1650; J1815; J1940; J2060; J2250; J2270; J2405; J2704; J2765; J2920; J2930; J3010; J3370; J3490; J7040; J7042; J7050; J7060; J7070; J7512; J7608; J7626; P9047; Q9967; A4315